=== PATIENT | female | born 1995 | race Two or more races ===

== ENCOUNTER 2017-09-02 23:25 | Emergency (ER) | payer MEDICAID ==
[~2017-09-02] VITALS: Ht 157.5 cm; Wt 59.0 kg
[2017-09-02 23:30] VITALS: BP 138/75
== END 2017-09-02 23:55 | disposition home or self-care (01) ==
LOC: ER 23:33
DX: J40 Bronchitis, not specified as acute or chronic (principal); F15.10 Other stimulant abuse, uncomplicated
CPT/HCPCS: A4606; Z7610